=== PATIENT | female | born 1945 | race Caucasian/White ===

== ENCOUNTER → 2018-08-23 15:06 | Outpatient (CLI) | payer MEDICARE ==
[2018-08-23 15:44] LABS: ALBUMIN 3.8 g/dL (3.4-5.0); BILIRUBIN - DIRECT 0.1 mg/dL (0.00-0.30); BILIRUBIN - INDIRECT 0.34 mg/dL (0.00-1.00); BILIRUBIN - TOTAL 0.44 mg/dL (0.2-1.3)
== END | disposition home or self-care (01) ==
LOC: D.LAB 15:06 → D.US 15:30
PROVIDERS: Internal Medicine Gastroenterology
DX: K76.0 Fatty (change of) liver, not elsewhere classified (principal)

== ENCOUNTER 2018-10-11 03:11 | Observation (INO) | payer MEDICARE ==
[~2018-10-11] VITALS: Ht 160 cm; Wt 59.1 kg
[2018-10-11] VITALS (9 sets, daily range): BP systolic 98–166; BP diastolic 41–70; Ht 160 cm; Wt 59.1 kg
--- NOTE | ~2018-10-11 | HEMODYNAMI ---
PATIENT:DARRYL WRIGHT MEDICAL RECORD: [id number] : 49 LOCATION:[place] [address] ADMISSION DATE: 10/11/18 Generatedon:10/11/201814:41 Patient name: DARRYL WRIGHT Patient #: [id number] SSN: : 1945 Date of study: 10/11/2018 Page: Of Hemodynamic Procedure Report Patient Data Patient Demographics Procedure consent was obtained First Name: DARRYL Gender: Female Last Name: ADRIANA : 1945 Patient #: [id number] Age: 73 year(s) Race: Additional ID: [id number] Contact details Address: [address] [place] [address] State: [place] City: [place] Zip code: [address] Admission Admission Data Admission Date: 10/11/2018 Admission Time: 5:38 Room #: 2123 Procedure Procedure Types Cath Procedure Diagnostic Procedure LHC LHC w/Coronaries Procedure Description Procedure Date Procedure Date: 10/11/2018 Procedure Start Time: 14:30 Procedure End Time: 14:38 Procedure Staff Name Function Arslan Juarez MD Performing Physician Denia Jackson RT Monitor Ness Atkins RT Scrub Anna Epstein RN Nurse Procedure Data Cath Procedure Fluoroscopy Diagnostic fluoroscopy Total fluoroscopy Time: 0.9 time: 0.9 min min Diagnostic fluoroscopy Total fluoroscopy dose: 141 dose: 141 mGy mGy Contrast Material Contrast Material Type Amount (ml) Isovue 300 50 Entry Location Entry Primary Successful Side Size Upsize Upsize Entry Closure Succes sful Closure Location (Fr) 1 (Fr) 2 (Fr) Remarks Device Remarks Femoral Right 5 Fr Exoseal artery Estimated blood loss: 5 ml Diagnostic catheters Device Type Used For End Catheter Placement MULTIPACK JL 4.0 5Fr Left Coronary catheter Angiography MULTIPACK 3DRC 5Fr Right Coronary catheter Angiography MULTIPACK Pigtail 5 Fr Multi-vessel catheter Angiography Procedure Complications No complications Procedure Medications Medication Administration Route Dosage Oxygen etCO2 Nasal cannula 2 l/min Lidocaine 2% added to field 20 Heparin Flush Bag added to field 2 bags (1000units/500ml NS) 0.9% NaCl I.V. 100 ml/hr Versed I.V. 1 mg Fentanyl I.V. 50 mcg Versed I.V. 1 mg Fentanyl I.V. 50 mcg Versed I.V. 1 mg Hemodynamics Rest Heart Rate: 70 (bpm) Pressure Samples Time Site Value (mmHg) Purpose Heart Use Rate(bpm) 14:34 LV 92/-1,9 Snapshot 110 Gradients Valve Time Site Site Mean SEP/DFP Peak To Heart Use 1 2 (mmHg) (sec/min) Peak Rate (mmHg) (bpm) Aortic 14:35 LV AO 71 Snapshots Pre Cath Intra NCS Post Cath Vital Signs Time Heart Resp SPO2 etCO2 NIBP (mmHg) Rhythm Pain Sedation Rate (ipm) (%) (mmHg) Status Level (bpm) 14:16:55 72 14 99 27.1 139/67(115) NSR 0 (11) 10(A) , No pain 14:21:09 67 13 100 28.5 105/55(77) NSR 0 (11) 10(A) , No pain 14:25:19 66 12 99 0 96/55(70) NSR 0 (11) 10(A) , No pain 14:29:26 63 11 98 32.3 97/49(69) NSR 0 (11) 9(A) , No pain 14:33:34 66 12 98 13.5 99/49(71) NSR 0 (11) 9(A) , No pain 14:37:44 66 14 98 0 92/48(66) NSR 0 (11) 10(A) , No pain Medications Time Medication Route Dose Verified Delivered Reason Notes Eff ectiveness by by 14:17:30 Oxygen etCO2 2 Arslan Anna used for Nasal l/min [facility] Marshall Epstein RN procedure cannula 14:17:36 Lidocaine 2% added 20ml Arslan Mcdaniels for local to vial [facility] anesthetic field MD العراقي 14:17:43 Heparin Flush added 2 Arslan Arslan used for Bag to bags [facility] procedure (1000units/500ml field MD العراقي NS) 14:17:52 0.9% NaCl I.V. 100 Arslan Castillo Per ml/hr [facility] Marshall Epstein RN physician 14:27:17 Versed I.V. 1 mg Arslan Hill RN sedation 14:27:23 Fentanyl I.V. 50 Arslan Castillo for alisha Hill RN sedation 14:30:19 Versed I.V. 1 mg Arslan Hill RN sedation 14:30:23 Fentanyl I.V. 50 Arslan Hill RN sedation 14:33:28 Versed I.V. 1 mg Arslan Hill RN sedation Procedure Log Time Note 13:49:05 Informed consent obtained and on chart 13:49:12 Diagnostic Cath Status : Elective 13:49:31 nAna Epstein RN sent for patient. Start room use. 13:49:33 Time tracking: Regular hours (M-F 7:00 - 5:00) 13:49:37 Plan of Care:Hemodynamics will remain stable., Cardiac rhythm will remain stable., Comfort level will be maintained., Respiratory function will remain adequate., Patient/ family verbilizes understanding of procedure., Procedure tolerated without complication., Recovers from procedure without complications.. 14:08:54 Patient received from PCU to CCL 1 Alert and oriented. Tansferred to table in Supine position. 14:08:55 Warm blankets applied, and destiny hugger turned on for patient comfort. 14:08:55 Correct patient and procedure confirmed by team. 14:08:56 ECG and BP/O2 sat monitors applied to patient. 14:08:57 Full Disclosure recording started 14:15:48 Vital chart was started 14:17:30 Oxygen 2 l/min etCO2 Nasal cannula was administered by Anna Epstein RN; used for procedure; 14:17:36 Lidocaine 2% 20ml vial added to field was administered by Arslan Juarez MD; for local anesthetic; 14:17:43 Heparin Flush Bag (1000units/500ml NS) 2 bags added to field was administered by Arslan Juarez MD; used for procedure; 14:17:52 0.9% NaCl 100 ml/hr I.V. was administered by Anna Epstein RN; Per physician; 14:20:55 Baseline sample Acquired. 14:20:59 Rhythm: sinus rhythm 14:21:06 H&P Date Dictated: 10/11/2018 Within 30 days and on chart., H&P Addendum completed by physician on day of procedure. (MUST COMPLETE FOR ALL OUTPATIENTS). 14:21:07 Pre-procedure instructions explained to patient. 14:21:08 Pre-op teaching completed and patient verbalized understanding. 14:21:09 Family in waiting room. 14:21:10 Patient NPO since Midnight. 14:21:13 Is the patient allergic to Iodine/contrast media? No. 14:21:14 Was the patient premedicated? No 14:21:18 Is patient on blood thinner?No 14:21:19 Patient diabetic? No. 14:21:23 Previous problem with sedation/anesthesia? No ? 14:21:25 Snore? No 14:21:26 Sleep apnea? No 14:21:26 Deviated septum? No 14:21:27 Opens mouth fully? Yes 14:21:28 Sticks out tongue? Yes 14:21:29 Airway obstruction? No ? 14:21:32 Dentures? No ? 14:21:36 Pre procedure: right dorsailis pedis pulse 2+ Normal; easily identifiable; not easily obliterated 14:21:38 Pre procedure: left dorsailis pedis pulse 2+ Normal; easily identifiable; not easily obliterated 14:21:39 Patient pain scale 0/10 ?. 14:21:45 IV patent on arrival in left forearm with 0.9% NaCl at [facility]. 14:21:47 Lab results completed and on chart. 14:21:51 Right groin area was prepped with chlora-prep and draped in sterile fashion 14:21:52 Alarms reviewed by R. N. 14:21:53 Sharps counted by scrub and verified by R.N. 14:26:33 Physician arrived 14:26:39 --------ALL STOP TIME OUT------ 14:26:40 Final Timeout: patient, procedure, and site verified with staff and physician. All members of the team are in agreement. 14:26:43 Right groin site verified by team. 14:26:47 Maximum allowable Isovue 370 dose 300ml. Physician notified. (300ml for normal creatinines. For patients with creatinine of 1.7 or higher multiply weight(kg) x 5 divided by creatinine.) 14:26:51 Fire Safety Assessment: A--An alcohol-based skin anteseptic being used preoperatively., C--Open oxygen or nitrous oxide is being used., D--An ESU, laser, or fiber-optic light is being used. 14:26:55 Physical assessment completed. ASA score P 2 - A patient with mild systemic disease as per Arslan Juarze MD. 14:26:58 Sedation plan: IV Moderate Sedation Medication:Versed, Fentanyl 14:27:17 Versed 1 mg I.V. was administered by Anna Epstein RN; for sedation; 14::23 Fentanyl 50 mcg I.V. was administered by Anna Epstein RN; for sedation; 14:27:25 Use device set Femoral Dx 14:27:26 ACIST Syringe (21222) opened to sterile field. 14:27:26 Bag Decanter (2002S) opened to sterile field. 14:27:27 Medline Cath Pack ([id number]) opened to sterile field. 14:27:27 DIAGNOSTIC WIRE .035 260cm J wire (388627) opened to sterile field. 14:27:28 ACIST Hand Control (02968) opened to sterile field. 14:27:29 ACIST Manifold (78918) opened to sterile field. 14:27:29 DIAGNOSTIC Multipack 5Fr catheter set ([id number]) opened to sterile field. 14:27:30 Tegaderm 4 x 4 (1626W) opened to sterile field. 14:27:31 SHEATH 5FR Stafford (GRJ455) opened to sterile field. 14:28:13 Zero performed for pressure channel P1 14:29:00 Procedure started. 14:30:19 Versed 1 mg I.V. was administered by Anna Epstein RN; for sedation; 14::23 Fentanyl 50 mcg I.V. was administered by Anna Epstein RN; for sedation; 14:30:28 Local anesthetic to right femoral artery with Lidocaine 2% by Arslan Juarez MD.INITIAL ACCESS ONLY 14:30:45 A 5 Fr sheath was inserted into the Right Femoral artery 14:31:07 A MULTIPACK JL 4.0 5Fr catheter was advanced over the wire and used for Left Coronary Angiography. 14:32:10 LCA angiography performed. 14:32:16 Injector settings: Ml/sec: 3, Volume: 6, 14:33:28 Versed 1 mg I.V. was administered by Anna Epstein RN; for sedation; 14:33:43 A MULTIPACK 3DRC 5Fr catheter was advanced over the wire and used for Right Coronary Angiography. 14:33:51 RCA angiography performed. 14:34:06 Injector settings: Ml/sec: 3, Volume: 6, 14:34:19 Catheter removed. 14:34:24 A MULTIPACK Pigtail 5 Fr catheter was advanced over the wire and used for Multi-vessel Angiography. 14:35:40 LV hemodynamics recorded. 14:35:41 LV gram done using VIDALES 14:35:44 Injector settings: Ml/sec: 5, Volume: 15, 14:35:51 EF : 50 % 14:35:54 Catheter removed. 14:35:55 EXOSEAL 5Fr (EX500) opened to sterile field. 14:36:36 Sheath removed intact; hemostasis achieved with Exoseal to the Right Femoral artery. 14:36:42 Procedure ended.(Physican Out) 14:36:58 Fluoroscopy time 00.90 minutes. 14:37:03 Flurop Dose total: 141 14:37:03 Fluoroscopy dose: 141 mGy 14:37:07 Contrast amount:Isovue 300 50ml. 14:37:09 Sharps counted by scrub and verified by R.N. 14:37:11 Insertion/operative site no bleeding no hematoma. 14:37:14 Post-op/insertion site Right Femoral artery dressed using a 4 x 4 and Tegaderm. 14:37:18 Post procedure rhythm: unchanged. 14:37:22 Estimated blood loss: 5 ml 14:37:24 Post procedure instruction explained to patient.Patient verbalizes understanding. 14:37:27 Patient needs reinforcement of post procedure teaching. 14:37:59 Procedure and supply charges have been captured, reviewed, submitted and are correct. 14:38:04 Procedure Complication : No complications 14:38:06 Vital chart was stopped 14:38:06 See physician's report for complete and final results. 14:38:15 Report given to Med II. 14:38:18 Patient transfered to Med II with Stretcher. 14:38:20 Procedure ended. 14:38:20 Full Disclosure recording stopped 14:38:24 End room use (Document Last) Device Usage Item Name Manufacture Quantity Catalog Hospital Part Current Minimal L ot# / Number Charge Number Stock Stock Serial# Code [facility] 1 28545 911453 412144 110435 20 Syringe Medical (55532) Systems Inc Bag Microtek 1 2001S 310543 39199 929973 5 Decanter Medical Inc. () Medline Medline 1 [id number] 642983 62969 787926 5 Cath Pack ([id number]) DIAGNOSTIC [facility] Mike 1 912107 356636 471080 175916 30 WIRE .035 260cm J wire (192870) ACIST Hand Acist 1 02434 154856 112900 467952 5 Control Medical (50646) Systems Inc ACIST Acist 1 02147 081469 638674 854707 5 Manifold Medical (72359) Systems Inc DIAGNOSTIC Cardinal 1 [id number] 216092 36634 762966 30 Multipack Health 5Fr catheter set (MA7741) Tegaderm 4 3M 1 1626W 420998 053319 922550 5 x 4 (1626W) SHEATH 5FR Terumo 1 WLG050 782072 718399 240256 5 Stafford (ECJ350) MULTIPACK Cardinal 1 264794 5 JL 4.0 5Fr Health catheter MULTIPACK Cardinal 1 858760 5 3DRC 5Fr Health catheter MULTIPACK Cardinal 1 120919 5 Pigtail 5 Health Fr catheter EXOSEAL 5Fr Cardinal 1 EX500 596655 166629 137787 10 (EX500) Health Signature Audit [place] Stage Time Signature Unsigned Intra-Procedure 10/11/2018 Denia Jackson 2:41:01 PM RT(R) Signatures Monitor : Denia Jackson RT Signature : Date : Time : [facility] [address] [place] [address]
[2018-10-11] MEDS ORDERED: ZYRTEC10 MG PO (03:21)
[2018-10-11] MEDS ORDERED: LEVOXYL50 MCG PO (03:21)
[2018-10-11] MEDS ORDERED: FLUTICASONE PRO16 GM NASAL (03:22)
[2018-10-11] MEDS ORDERED: NEXIUM20 MG PO (03:22)
[2018-10-11] MEDS ORDERED: BAYER CHEWABLE81 MG PO (03:22)
[2018-10-11] MEDS ORDERED: ESTRACE1 MG PO (03:23)
[2018-10-11] MEDS ORDERED: MAGIC MOUTHWASH (03:23)
[2018-10-11] MEDS ORDERED: LEVOFLOXACIN500 MG PO (03:23)
[2018-10-11] MEDS ORDERED: FOLATE0.4 MG (03:24)
[2018-10-11] MEDS ORDERED: GALZIN50 MG (03:24)
[2018-10-11] MEDS ORDERED: FOLBIC RF TABL1 EACH PO (03:24)
[2018-10-11] MEDS ORDERED: VITAMIN D2000 UNIT PO (03:24)
[2018-10-11 03:58] LABS: BASOPHILS 0.1 % (0-2); EOSINOPHILS 1.4 % (0-7); HEMATOCRIT 39.4 % (36.0-48.0); HEMOGLOBIN 13.2 g/dL (12-16); IMMATURE GRANULOCYTES 0.2 % (0-5); LYMPHOCYTES 38.7 % (15-50); MCH 30.4 pg (26.0-34.0); MCHC 33.5 g/dL (31.0-37.0); MCV 90.8 fL (80.0-100.0); MEAN PLATELET VOLUME 9.2 fL (7.4-10.4); MONOCYTES 10.2 % (2-11); NEUTROPHILS 49.4 % (40-80); PLATELET COUNT 239 10x3/uL (130-400); RBC 4.34 10x6/uL (4.00-5.40); RDW 13.5 % (11.5-14.5); WBC 8.6 10x3/uL (4.8-10.8)
[2018-10-11 04:03] LABS: APTT 29.4 SECONDS (22.8-39.4); INR 0.94 (0.85-1.17); PROTIME 12.1 SECONDS (11.6-15.0)
[2018-10-11 04:04] LABS: D-DIMER-QUANTITATIVE 0.61 ug/mLFEU (0.20-0.54)
[2018-10-11 04:05] LABS: ALBUMIN 3.8 g/dL (3.4-5.0); ALKALINE PHOSPHATASE 110 U/L (46-116); ALT (SGPT) 48 U/L (10-68); BILIRUBIN - TOTAL 0.32 mg/dL (0.2-1.3); CALC OSMOLALITY 280 mosm/kg (275-300); CALCIUM 9.5 mg/dL (8.5-10.1); CARBON DIOXIDE 27.4 mmol/L (21.0-32.0); CHLORIDE - SERUM 104 mmol/L (98-107); CREATININE - SERUM 0.8 mg/dL (0.6-1.3); GLUCOSE 103 mg/dL (74-106); POTASSIUM - SERUM 3.7 mmol/L (3.5-5.1); PROTEIN - SERUM 7.3 g/dL (6.4-8.2); SODIUM 141 mmol/L (136-145); UREA NITROGEN 12 mg/dL (7-18); eGFR NON AFRICAN AMERICAN 75 mL/min (90-120)
[2018-10-11 04:16] LABS: CKMB 1.3 U/L (0.0-3.6); CREATINE KINASE 79 UL (21-215); PRO BNP 325 pg/mL (0-125)
[2018-10-11 04:24] LABS: TROPONIN-I < 0.017 ng/mL (0.000-0.060)
--- NOTE | 2018-10-11 04:34 | NUR ---
RN ADMINISTERED 2ND NTG, PT REPORTS DECREASE IN PAIN FROM 9/10 TO 7/10 AFTER FIRST ROUND.
--- NOTE | 2018-10-11 04:45 | NUR ---
PT LEFT VIA STRETCHER FOR CTA
--- NOTE | 2018-10-11 05:37 | NUR ---
PT RESTING ON BED. PT FAMILY AT BEDSIDE. NO S/S OF ACUTE DISTRESS NOTED.
--- NOTE | 2018-10-11 06:00 | NUR ---
PT AMBULATED TO RESTROOM WITH A STEADY GAIT. PT FAMILY AT SIDE.
--- NOTE | 2018-10-11 06:25 | NUR ---
PT AND FAMILY UPDATED ON PLAN OF CARE. PT DENIES NEEDS AT THIS TIME.
--- NOTE | 2018-10-11 08:58 | NUR ---
RECEIVED REPORT FROM THE ED.
--- NOTE | 2018-10-11 09:11 | NUR ---
RECEIVED TO ROOM VIA WHEELCHAIR. DENIES ANY CHEST PAIN. SALINE LOCK PIV SEEN TO LEFT AC, ORANGE SWAB CAP PLACED PAST FLUSHNG.
[2018-10-11 09:33] LABS: CHOL - HDL RATIO 3.3 ratio (2.3-4.1); CHOLESTEROL, TOTAL 179 mg/dL (0-200); CKMB 1.1 U/L (0.0-3.6); CREATINE KINASE 59 UL (21-215); HDL CHOLESTEROL 54 mg/dL (32-96); LDL CHOLESTEROL 109 mg/dL (0-100); TRIGLYCERIDE 82 mg/dL (30-200)
[2018-10-11 09:34] LABS: TROPONIN-I < 0.017 ng/mL (0.000-0.060)
--- NOTE | 2018-10-11 09:36 | NUR ---
PATIENT IS MADE NPO, CONSENTS SIGNED FOR HEART CATH.
--- NOTE | 2018-10-11 12:33 | NUR ---
PATIENT IS PRE-OP FOR HEART CATH. PLACED ON 2L NC.
--- NOTE | 2018-10-11 13:52 | NUR ---
STILL NPO WAITING FOR TEAM TO TAKE HER TO THE SANDWICH PEDDLER.
--- NOTE | 2018-10-11 14:03 | NUR ---
TO PROGRAM INSTRUCTOR VIA BED.
--- NOTE | 2018-10-11 14:55 | NUR ---
RETURNS FROM INFORMATION OFFICER RECOVERY WITH DRESSING TO RIGHT GROIN, C/D/I. PPP AND STRONG. DR CEVALLOS GIVEN PHONE NUMBER TO CALL [facility]. WILL MONITOR. PATIENT IS SLEEPY. TO LAY FLAT X 2 HOURS.
--- NOTE | 2018-10-11 17:43 | NUR ---
SITTING UP IN THE BED EATING SUPPER. NO VOID YET SINCE BACK FROM MICROARRAY SPECIALIST. STILL WITH IV FLUIDS INFUSING. RIGHT GROIN SITE IS C/D/I, PPP AND STRONG. WILL CONTINUE TO MONITOR FOR URINE AND SITE BLEEDING.
--- NOTE | 2018-10-11 19:05 | NUR ---
ASSESSMENT COMPLETE, PT A&O. RESPERTIONS EVEN ON RA. IV TO LEFT ARM SL, SITE CLEAN AND DRY. DRSG TO RIGHT GROIN C/D/I. NO SWELLING, BLEEDING OR HEMATOMA NOTED. PEDAL PULSES PRESENT. UP WITH ASSIST TO BR.
--- NOTE | 2018-10-12 02:08 | NUR ---
PT ASLEEP. RESP EVEN AND UNLABORED. PT IS 60 SR ON MONITOR. BEDLOW AND CALL LIGHT IN REACH. PT WILL CALL FOR ASSIST WHEN NEEDED. WILL CPOC
[2018-10-12 03:55] VITALS: BP 100/46
--- NOTE | 2018-10-12 07:25 | NUR ---
ASSESSMENT DONE. DENIES NEEDS.
[2018-10-12 10:10] LABS: BASOPHILS 0.2 % (0-2); EOSINOPHILS 1.5 % (0-7); HEMATOCRIT 38.6 % (36.0-48.0); HEMOGLOBIN 12.6 g/dL (12-16); IMMATURE GRANULOCYTES 0.1 % (0-5); MCH 30.7 pg (26.0-34.0); MCHC 32.6 g/dL (31.0-37.0); MEAN PLATELET VOLUME 9.3 fL (7.4-10.4); MONOCYTES 6.2 % (2-11); PLATELET COUNT 220 10x3/uL (130-400); RDW 14.4 % (11.5-14.5); WBC 8.7 10x3/uL (4.8-10.8)
[2018-10-12 10:17] LABS: CALC OSMOLALITY 281 mosm/kg (275-300); CALCIUM 8.9 mg/dL (8.5-10.1); CARBON DIOXIDE 29.4 mmol/L (21.0-32.0); CHLORIDE - SERUM 105 mmol/L (98-107); CREATININE - SERUM 0.8 mg/dL (0.6-1.3); GLUCOSE 98 mg/dL (74-106); POTASSIUM - SERUM 3.4 mmol/L (3.5-5.1); SODIUM 142 mmol/L (136-145); UREA NITROGEN 9 mg/dL (7-18); eGFR NON AFRICAN AMERICAN 75 mL/min (90-120)
[2018-10-12 10:23] VITALS: BP 97/47
[2018-10-12 10:29] LABS: MCV 94.1 fL (80.0-100.0)
--- NOTE | 2018-10-12 10:57 | NUR ---
I have reviewed this patient and I concur with the Shift Assessment completed by the Licensed Practical Nurse today this shift.
--- NOTE | 2018-10-12 14:30 | NUR ---
DC GIVEN TO PT
[2018-10-12 14:36] VITALS: BP 123/56
--- NOTE | 2018-10-12 15:09 | NUR ---
DC HOME PER PERSONAL CAR
--- NOTE | 2018-10-13 08:35 | MORECARE ---
CASE MANAGEMENT DISCHARGE SUMMARY PATIENT: DARRYL WRIGHT UNIT: [id number] ADM DATE: 10/11/18 AGE: 73 : [birth year] SEX: F ROOM/BED: D.7853 AUTHOR: KE ROSAS PHYSICIAN: REFERRING PHYSICIAN: LIDYA PEARSON MD DATE OF SERVICE: 10/13/18 Discharge Plan Patient Name: DARRYL WRIGHT Facility: [facility]:[place] : 1945 Planned Disposition: Home Anticipated Discharge Date: 10/12/18 Discharge Date: 10/12/2018 Expected LOS: 1 Initial Reviewer: [email or web address] Initial Review Date: 10/13/2018 Generated: 10/13/18 9:35 am Patient Name: DARRYL WRIGHT Page [id number] at 0835 All edits/amendments must be made on the electronic document DICTATION DATE: 10/13/18833 CUTTING AND CREASING PRESS OPERATOR: JOE 10/13/1834 RPT#: [id number] DC DATE:10/12/18 STATUS: DIS IN [facility] [address] [place] [address] END OF REPORT
--- NOTE | 2018-10-14 12:17 | OP ---
PATIENT NAME: DARRYL WRIGHT MEDICAL RECORD: [id number] :[birth year] LOCATION:D.M2 D.2123 ADMISSION DATE:10/11/18 SURGEON: MOON CEVALLOS MD DATE OF OPERATION: 10/11/2018 PROCEDURE: Left heart catheterization, selective coronary angiography, right femoral artery approach. CATHETERS: A 5-Greenlandic sheath, 5/4 left and right Brittney, 5/4 pig. The procedure was well tolerated. The patient was returned to [facility]. Sheath removed. ExoSeal device placed. FINDINGS: Left ventriculography in 30-degree VIDLAES view: Normal wall motion and normal systolic function. CORONARY ANATOMY: LEFT MAIN: Left main is free of disease. LAD: Free of disease in the diagonal system. CIRCUMFLEX: Free disease as in the marginal system. RIGHT CORONARY ARTERY: Dominant artery, gives rise to PDA, free of disease. IMPRESSION: Normal systolic function. Normal coronary anatomy. TRANSINT:[id number] Voice Confirmation ID: [id number] DOCUMENT ID: [id number] MOON CEVALLOS MD at 1217 CC: [id number] DICTATION DATE: 10/11/18 1445 DIAMOND SANDER: 10/11/18 1613 DIS IN 10/12/18 [facility] [address] [place] [address]
== END 2018-10-12 15:11 | disposition home or self-care (01) ==
LOC: D.ER 03:11 → OBSVTIME 05:38 → D.EDHOLD 05:38 → D.M2 08:39
PROVIDERS: Emergency Medicine; ADMIT Internal Medicine Nephrology; ATTEND Internal Medicine Nephrology
DX: I20.0 Unstable angina (principal); E78.5 Hyperlipidemia, unspecified; K57.90 Diverticulosis of intestine, part unspecified, without perforation or abscess without bleeding

== ENCOUNTER → 2019-02-20 09:01 | Outpatient (CLI) | payer MEDICARE ==
[2018-10-11 09:16] VITALS: BMI 23.0
[~2019-02-20 09:01] MED LIST: BAYER CHEWABLE81 MG PO; ESTRACE1 MG PO; FLUTICASONE PRO16 GM NASAL; FOLATE0.4 MG; FOLBIC RF TABL1 EACH PO; GALZIN50 MG; LEVOFLOXACIN500 MG PO; LEVOXYL50 MCG PO; MAGIC MOUTHWASH; NEXIUM20 MG PO; VITAMIN D2000 UNIT PO; ZYRTEC10 MG PO
[2019-02-20 10:27] LABS: ALBUMIN 3.7 g/dL (3.4-5.0); BILIRUBIN - DIRECT 0.08 mg/dL (0.00-0.30); BILIRUBIN - INDIRECT 0.24 mg/dL (0.00-1.00); BILIRUBIN - TOTAL 0.32 mg/dL (0.2-1.3); PROTEIN - SERUM 6.9 g/dL (6.4-8.2)
== END | disposition home or self-care (01) ==
LOC: D.US 02-03 08:30
PROVIDERS: ATTEND Internal Medicine Gastroenterology
DX: K76.0 Fatty (change of) liver, not elsewhere classified (principal)